=== PATIENT | female | born 1985 | race Caucasian/White ===

== ENCOUNTER 2017-11-01 10:25 | Day surgery (SDC) | payer OTHER ==
[~2017-11-01 10:25] MED LIST: ATROPINE 1 MG/10 ML SYRINGE IV; CEFAZOLIN 1 GM INJ; DIPHENHYDRAMINE 50 MG INJ IV; EPHEDrine SULFATE 50 MG/5 ML SYG IV; FENTAnyl 50 MCG/ML VIAL IV; HYDROmorphONE (0.2 MG/ML) 10ML SYG IV; LABETALOL HCL 20MG INJ IV; MEPERIDINE 25 MG INJ IV; MIDAZOLAM 1 MG/ML 2 ML INJ IV; ONDANSETRON 4 MG INJ IV; OXYCODONE/ACETAMINOPHEN (5/325) TAB PO; SUCCINYLCHOLINE CHLORIDE 100 MG/5 ML SYG IV; hydrALAzine 20 MG INJ IV; morphine (1 MG/ML) 10ML SYRINGE IV
[2017-11-01] MEDS ORDERED: PROPOFOL 20 ML (12:29)
[2017-11-01] MEDS ORDERED: FENTAnyl 50 MCG/ML VIAL (12:29)
[2017-11-01] MEDS ORDERED: ROCURONIUM 50 MG INJ (12:29)
[2017-11-01] MEDS ORDERED: GLYCOPYRROLATE 1 MG INJ (12:29)
[2017-11-01] MEDS ORDERED: LIDOCAINE 2% (SDV) 5 ML INJ (12:29)
[2017-11-01] MEDS ORDERED: NEOSTIGMINE 3 MG/3 ML SYRINGE (12:29)
[2017-11-01] MEDS ORDERED: ONDANSETRON 4 MG INJ ×2 (12:30→15:39)
[2017-11-01] MEDS ORDERED: DEXAMETHASONE 4 MG/ML 1 ML INJ (12:30)
[2017-11-01] MEDS ORDERED: MIDAZOLAM 1 MG/ML 2 ML INJ (12:30)
[2017-11-01] MEDS ORDERED: LABETALOL HCL 20MG INJ (13:30)
[2017-11-01] MEDS: BUPIVACAINE 0.5%/EPI (SDV) 30 ML INJ (14:13)
[2017-11-01] MEDS: POLYMYXIN/BACITRACIN 1L IRRIG (14:13)
[2017-11-01] MEDS ORDERED: HYDROmorphONE (0.2 MG/ML) 10ML SYG IV (15:39)
[2017-11-01] MEDS: HYDROmorphONE (0.2 MG/ML) 10ML SYG IV ×2 (15:48→16:00)
[2017-11-01] MEDS ORDERED: MEPERIDINE 100 MG INJ IM (16:00)
[2017-11-01] MEDS ORDERED: OXYCODONE/ACETAMINOPHEN (5/325) TAB PO (16:00)
[2017-11-01] MEDS ORDERED: hydrOXYzine HCL 100 MG INJ IM (16:00)
[2017-11-01] MEDS: OXYCODONE/ACETAMINOPHEN (5/325) TAB PO (16:44)
== END 2017-11-01 17:25 | disposition home or self-care (01) ==
LOC: SDS 10:25
DX: M19.032 Primary osteoarthritis, left wrist (principal)
CPT/HCPCS: 25332; 73110-LT